=== PATIENT | female | born 1980 | race Two or more races ===

== ENCOUNTER 2023-10-06 07:41 | Outpatient (CLI) | payer OTHER | END 2023-10-06 08:07 | disposition home or self-care (01) | LOC: MAMO-SONO 07:41 | DX: Z13.1 Encounter for screening for diabetes mellitus (principal); Z13.220 Encounter for screening for lipoid disorders; Z13.29 Encounter for screening for other suspected endocrine disorder; Z12.31 Encounter for screening mammogram for malignant neoplasm of breast; Z12.11 Encounter for screening for malignant neoplasm of colon; Z11.3 Encounter for screening for infections with a predominantly sexual mode of transmission; Z00.00 Encounter for general adult medical examination without abnormal findings; Z12.39 Encounter for other screening for malignant neoplasm of breast ==

== ENCOUNTER → 2024-12-27 | Emergency (ER) | payer OTHER ==
[~2024-12-27] VITALS: Ht 157.5 cm; Wt 50.8 kg
[~2024-12-27] MED LIST: KETOROLAC TROMETHAMINE 60 MG VIAL IM ONE; KETOROLAC TROMETHAMINE 60 MG VIAL IM STA; ORPHENADRINE CITRATE 30 MG/ML AMPUL IM STA; ORPHENADRINE CITRATE 30 MG/ML AMPUL ONE
[2024-12-27 09:13] VITALS: BP 103/68; O2SAT 100
== END | disposition home or self-care (01) ==
LOC: ER 08:43
DX: M54.50 Low back pain, unspecified (principal)